=== PATIENT | male | born 1945 | race Two or more races ===

== ENCOUNTER 2022-07-05 08:10 | Day surgery (SDC) | payer OTHER ==
[~2022-07-05] VITALS: Ht 165.1 cm; Wt 93.4 kg
[~2022-07-05 08:10] MED LIST: ACET325T82 PO; AMLO10CA PO; ASPI1TAB20 PO; ATEN-60 PO; CEPH500C PO; CHLO25TA2 PO; DONE1TAB88 PO; GABA300C10 PO; LATA0.0020 OP; NITR0.4S29 SL; OMEP20TA PO; TAMS0.4C36 PO; TRAZ100T3 PO
[2022-07-05] MEDS ORDERED: BUPIVACAINE HCL 0.25% P/F 10 ML VIAL ONE (09:01)
[2022-07-05] MEDS ORDERED: LIDOCAINE 1%HCL (LOCAL ANESTH) 10 ML MDV ONE (09:01)
[2022-07-05] MEDS ORDERED: DexAMETHasone SOD PHOS 4 MG/1ML SDV INJ ONE (09:01)
[2022-07-05] MEDS ORDERED: MIDAZOLAM HCL 2MG/2ML 2ml VIAL (1mg/ml) ONE (09:40)
[2022-07-05] MEDS ORDERED: fentaNYL CITRATE 100 MCG/2 ML VL ONE (09:40)
[2022-07-05] MEDS ORDERED: PROPOFOL 10 MG/ML 20 ML IV ONE (09:57)
[2022-07-05] MEDS ORDERED: DexAMETHasone SOD PHOS 10MG/1ML VIAL INJ ONE (09:57)
[2022-07-05] MEDS ORDERED: MORPHINE SULFATE 4 MG/ML SYR/VIAL IV PRN (10:15)
[2022-07-05] MEDS ORDERED: ePHEDrine SULFATE 50 MG/ML AMP IV PRN (10:15)
[2022-07-05] MEDS ORDERED: ONDANSETRON HCL 4 MG/2 ML VIAL IV PRN (10:15)
[2022-07-05] MEDS ORDERED: MIDAZOLAM HCL 2MG/2ML 2ml VIAL (1mg/ml) IV PRN (10:15)
[2022-07-05] MEDS ORDERED: LABETALOL HCL 5 MG/ML 4ML SYRINGE IV PRN (10:15)
[2022-07-05 10:29] VITALS: BP 122/63
== END 2022-07-05 10:41 | disposition home or self-care (01) ==
LOC: SUR 08:10
PROVIDERS: ATTEND Orthopaedic Surgery Adult Reconstructive Orthopaedic Surgery
DX: M24.662 Ankylosis, left knee (principal); I10 Essential (primary) hypertension; E11.9 Type 2 diabetes mellitus without complications; Z98.890 Other specified postprocedural states; Z79.899 Other long term (current) drug therapy; Z79.84 Long term (current) use of oral hypoglycemic drugs; Z96.652 Presence of left artificial knee joint; Z20.822 Contact with and (suspected) exposure to COVID-19
CPT/HCPCS: 20610; 27570; A4215; J1100; J2001; J2250; J2704; J3010; J3490; U0003

== ENCOUNTER 2023-07-18 05:58 | Day surgery (SDC) | payer OTHER ==
[~2023-07-18] VITALS: Ht 165.1 cm; Wt 93.4 kg
[~2023-07-18 05:58] MED LIST changes: -AMLO10CA PO; -CEPH500C PO; -CHLO25TA2 PO; +GABA-1251 PO; -GABA300C10 PO; -NITR0.4S29 SL; -TAMS0.4C36 PO; +TRAZ-228 PO; -TRAZ100T3 PO
[2023-07-18] MEDS ORDERED: ceFAZolin 1GM/50ML 100 ML IV ONE (06:33)
[2023-07-18] MEDS ORDERED: SUCCINYLCHOLINE CHLORIDE 20 MG/ML 10ML VIAL IV ONE (06:49)
[2023-07-18] MEDS ORDERED: ROCURONIUM 10MG/ML 10ML VIAL IV ONE (06:49)
[2023-07-18] MEDS ORDERED: DexAMETHasone SOD PHOS 10MG/1ML VIAL INJ ONE (06:58)
[2023-07-18] MEDS ORDERED: fentaNYL CITRATE 100 MCG/2 ML VL ONE (06:58)
[2023-07-18] MEDS ORDERED: MIDAZOLAM HCL 2MG/2ML 2ml VIAL (1mg/ml) ONE (06:58)
[2023-07-18] MEDS ORDERED: ONDANSETRON HCL 4 MG/2 ML VIAL ONE (06:58)
[2023-07-18] MEDS ORDERED: SODIUM CHLORIDE LOCK 10 ML ONE (06:58)
[2023-07-18] MEDS ORDERED: PROPOFOL 10 MG/ML 20 ML IV ONE (06:58)
[2023-07-18] MEDS ORDERED: LIDOCAINE 1% HCL (LOCAL ANESTH.) INJ 20ML MDV ONE ×2 (07:08→07:14)
[2023-07-18] MEDS ORDERED: BUPIVACAINE HCL 50 ML ONE (07:08)
[2023-07-18] MEDS ORDERED: LIDOCAINE 2%HCL (LOCAL ANESTH.) INJ 10ml MDV ONE (07:14)
[2023-07-18] MEDS ORDERED: DexAMETHasone SOD PHOS 4 MG/1ML SDV INJ ONE (07:14)
[2023-07-18] MEDS ORDERED: MORPHINE SULFATE INJ 2 MG/ml SYRG IV PRN (07:15)
[2023-07-18] MEDS ORDERED: HYDROmorphone HCL 2 MG/ML VL/or syr IV PRN ×2 (07:15)
[2023-07-18] MEDS ORDERED: ACCU-CHEK COMFORT CURVE STRIP VI ONE (07:15)
[2023-07-18] MEDS ORDERED: METOCLOPRAMIDE HCL 5MG/ml INJ 2ml VIAL IV PRN (07:15)
[2023-07-18 09:45] VITALS: BP 154/71; PULSE 58; RESP 16; TEMP 97.6; O2SAT 95
== END 2023-07-18 10:00 | disposition home or self-care (01) ==
LOC: SUR 05:58
PROVIDERS: ATTEND Orthopaedic Surgery Adult Reconstructive Orthopaedic Surgery
DX: G56.01 Carpal tunnel syndrome, right upper limb (principal); G56.21 Lesion of ulnar nerve, right upper limb; I10 Essential (primary) hypertension; E11.9 Type 2 diabetes mellitus without complications; Z79.899 Other long term (current) drug therapy; Z98.890 Other specified postprocedural states; E78.5 Hyperlipidemia, unspecified
CPT/HCPCS: 64718; 64721; 82962; J0330; J0690; J1100; J2001; J2250; J2405; J2704; J3010; J3490; 93005